=== PATIENT | female | born 1955 | race Hispanic/Latino ===

== ENCOUNTER 2019-12-21 16:20 | Emergency (ER) | payer MEDICARE ==
[~2019-12-21] VITALS: Ht 162.6 cm; Wt 72.6 kg
[2019-12-21] MEDS ORDERED: HYDROCODONE/APAP 5MG-325MG TAB PO ONE (17:30)
--- NOTE | 2019-12-21 18:31 | Emergency Department Note ---
History of Present Illnes History of Present Illness Chief Complaint: General Medicine Complaints History of Present Illness This is a 64 year old female Chief Complaint Comment Patient in from home with reports of left side pain that started after she reached over her head and maybe pulled a muscle. Patient states that the pain goes from her left side up her back and into her neck and states that it hurts to take a deep breath. No acute distress noted. VSS. Ambulatory without assistance. Historian: Patient Arrival Mode: Car Past Medical/Family History Physician Review I have reviewed the patient's past medical and family history. Any updates have been documented here. Past Medical History Recent Fever: No Clinical Suspicion of Infectio: No New/Unexplained Change in Ment: No Past Medical History: Hypertension, Diabetes, Hypothyroidism, Hyperlipedemia Past Surgical History: Hysterectomy, Other Surgery: thyroidectomy Physical Exam Related Data Allergies: Coded Allergies: No Known Allergies (Unverified , 12/21/19) Triage Vital Signs Vital Signs Date Time Temp Pulse Resp B/P (MAP) Pulse Ox O2 Delivery O2 Flow Rate FiO2 12/21/19 17:14 98.1 73 16 122/59 99 Room Air Physical Exam CONSTITUTIONAL HENT EYES NECK PULMONARY CARDIOVASCULAR GASTROINTESTINAL GENITOURINARY SKIN MUSCULOSKELETAL NEUROLOGICAL PSYCHOLOGICAL Assessment & Plan Medical Decision Making MDM 64 y.o F presents for LL rib pain after a fall a few days ago. No other symptoms. Fall was mechanical. X-rays benign. Doubt emergent process at this time. I discussed results patient as well as expected disease time course and management. They will follow up with their primary care provider or return to the emergency department for new or worsening symptoms. Patient's appropriate for discharge. She will take ibuprofen/tylenol at home and f/u w/ PCP. Reassessment Reassessment time: 19:33 Reassessment Well appearing, NAD Assessment & Plan Final Impression: (1) Rib pain Depart Disposition: HOME, SELF-CARE Last Vital Signs Date Time Temp Pulse Resp B/P (MAP) Pulse Ox O2 Delivery O2 Flow Rate FiO2 12/21/19 17:14 98.1 73 16 122/59 99 Room Air Medications in the ED Acetaminophen/ Hydrocodone Bitart 1 ea ONCE ONCE PO Last administered on 12/21/19at 18:09; Admin Dose 1 EA; Start 12/21/19 at 17:30; Stop 12/21/19 at 17:31; Status DC SOFIA ADEN MD Dec 21, 2019 18:31
--- NOTE | 2019-12-21 18:43 | Diagnostic Imaging Report ---
EXAMINATION: RIBS UNILAT W/CXR INDICATION: Left-sided chest pain. COMPARISON: None FINDINGS: TUBES and LINES: None. LUNGS: Normal lung volumes. Lungs are clear. No consolidations. PLEURA: No pleural effusion or pneumothorax. HEART AND MEDIASTINUM: The cardiomediastinal silhouette is unremarkable. BONES AND SOFT TISSUES: No acute osseous lesion. No displaced rib fractures. Soft tissues are unremarkable. UPPER ABDOMEN: No free air under the diaphragm. IMPRESSION: No acute thoracic radiographic abnormality, specifically no displaced rib fractures. Signed by: Suad Galeana MD on 12/21/2019 6:40 PM
== END 2019-12-21 20:01 | disposition home or self-care (01) ==
LOC: ER 17:56
DX: R07.81 Pleurodynia (principal); X50.1XXA Overexertion from prolonged static or awkward postures, initial encounter; Y92.008 Other place in unspecified non-institutional (private) residence as the place of occurrence of the external cause; I10 Essential (primary) hypertension; E11.9 Type 2 diabetes mellitus without complications
CPT/HCPCS: 71101; 99283